=== PATIENT | male | born 1985 | race Caucasian/White ===

== ENCOUNTER 2024-08-21 12:24 | Outpatient (AMB) | payer OTHER, SELFPAY ==
--- NOTE | 2024-08-21 12:26 | A.OFFPC_ITS ---
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 examination of your retina (back of your eye) at least every year if you have diabetes. IMMUNIZATIONS Commonly needed vaccines include: Flu shot: get one every year COVID-19 vaccine: ask your provider what is best for you Tetanus-diphtheria and acellular pertussis (Tdap) vaccine: have as one of your tetanus-diphtheria vaccines if you did not receive it as an adolescent Tetanus-diphtheria: have a booster (or Tdap) every 10 years Varicella vaccine: receive 2 doses if you never had chickenpox or the varicella vaccine and were born in 1980 or after Hepatitis B vaccine: receive 2, 3, or 4 doses, depending on your exact circumstances, if you did not receive these as a child or adolescent, until age 59 Shingles (herpes zoster) vaccine: at or after age 50 Ask your provider if you should receive other immunizations, especially if you have certain medical conditions, such as diabetes or are at increased risk for some diseases such as pneumonia. INFECTIOUS DISEASE SCREENING Screening for hepatitis C: all adults ages 18 to 79 should get a one-time test for hepatitis C. Screening for human immunodeficiency virus (HIV): all people ages 15 to 65 should get a one-time test for HIV. Depending on your lifestyle and medical history, you may need to be screened for infections such as syphilis, chlamydia, and other infections. LUNG CANCER SCREENING You should have an annual screening for lung cancer with low-dose computed tomography (LDCT) if: You are age 50 to 80 years AND You have a 20 pack-year smoking history AND You currently smoke or have quit within the past 15 years OSTEOPOROSIS SCREENING If you are age 50 to 64 and have risk factors for osteoporosis, you should discuss screening with your provider. Risk factors can include long-term steroid use, low body weight, smoking, heavy alcohol use, having a fracture after age 50, or a family history of hip fracture or osteoporosis. Osteoporosis PHYSICAL EXAM All adults should visit their provider from time to time, even if they are healthy. The purpose of these visits is to: Screen for diseases Assess risk of future medical problems Encourage a healthy lifestyle Update vaccinations and other preventive care services Maintain a relationship with a provider in case of an illness Your height, weight, and body mass index (BMI) should be checked at every exam. During your exam, your provider may ask you about: Depression and anxiety Diet and exercise Alcohol and tobacco use Safety, such as use of seat belts and smoke detectors Your medicines and risk for interactions PROSTATE CANCER SCREENING If you're 55 through 69 years old, before having the test, talk to your provider about the pros and cons of having a PSA test. Ask about: Whether screening decreases your chance of dying from prostate cancer. Whether there is any harm from prostate cancer screening, such as side effects from testing or overtreatment of cancer when discovered. Whether you have a higher risk of prostate cancer than others. If you are age 55 or younger, screening is not generally recommended. You should talk with your provider about if you have a higher risk for prostate cancer. Risk factors include: Having a family history of prostate cancer (especially a brother or father) Being If you choose to be tested, the PSA blood test is repeated over time (yearly or less often), though the best frequency is not known. Prostate examinations are no longer routinely done on men with no symptoms. Prostate cancer SKIN EXAM Your provider may check your skin for signs of skin cancer, especially if you're at high risk. People at high risk include those who have had skin cancer before, have close relatives with skin cancer, or have a weakened immune system. TESTICULAR EXAM The [place] Preventive Services Task Force (USPSTF) now recommends against performing testicular self-exams. Doing testicular self-exams has been shown to have little to no benefit.
[2024-08-21 12:34] VITALS: BP 102/66; PULSE 60; RESP 12; O2SAT 96; BMI 23.1
== END 2024-08-21 13:10 | disposition home or self-care (01) ==
PROVIDERS: Visit Provider Nurse Practitioner Family
DX: Z00.00 Encounter for general adult medical examination without abnormal findings (principal); Z90.2 Acquired absence of lung [part of]; Z28.21 Immunization not carried out because of patient refusal; L30.9 Dermatitis, unspecified

== ENCOUNTER → 2024-08-21 12:24 | Outpatient (BNVA) | payer OTHER, SELFPAY | PROVIDERS: Visit Provider Nurse Practitioner Family | DX: Z00.00 Encounter for general adult medical examination without abnormal findings (principal); L30.9 Dermatitis, unspecified; Z90.2 Acquired absence of lung [part of]; Z28.21 Immunization not carried out because of patient refusal | CPT/HCPCS: 96127 ==

== ENCOUNTER 2024-08-21 13:19 | Outpatient (REF) | payer OTHER, SELFPAY ==
[2024-08-21 17:37] LABS: Hematocrit 40.9 % (42.0-52.0); Hemoglobin 14.3 g/dl (14.0-18.0); Mean Corpuscular Hemoglobin 32.4 pg (27.0-33.0); Mean Corpuscular Volume 92.5 fL (80.0-98.0); Platelet Count 213 X10*3/uL (160-400); Red Blood Count 4.42 X10*6/uL (4.60-5.80); Red Cell Distribution Width 12.7 % (11.0-16.0); White Blood Count 7.6 X10*3/uL (4.8-10.8)
[2024-08-21 17:46] LABS: Estimated Average Glucose 105 mg/dL; Hemoglobin A1C 123.5613 umol/L; Hemoglobin A1c % 5.3 % (<6.0); Total Hemoglobin (HGBA1C) 3647.2468 umol/L
[2024-08-21 17:59] LABS: Creatinine Urine 125.42 mg/dL; Microalbum/Creatinine Ratio Ur 5.5 ug/mg cr (<30)
[2024-08-21 18:00] LABS: Alanine Aminotransferase 25 U/L (0-40); Albumin Level 4.2 g/dL (3.5-5.0); Alkaline Phosphatase 68 U/L (39-117); Anion Gap 10 (12-20); Aspartate Amino Transferase 29 U/L (5-37); Bilirubin Total 0.4 mg/dL (0.0-1.0); Blood Urea Nitrogen 19 mg/dL (9-16); Calcium 9.9 mg/dL (8.4-10.2); Carbon Dioxide 26 mmol/L (22-29); Chloride 109 mmol/L (96-108); Cholesterol 173 mg/dL (<200); Estimated Glomerular Filt Rate > 60; Glucose Random 94 mg/dL (60-115); HDL Cholesterol 33 mg/dL (>40); LDL Cholesterol Calculated 96 mg/dL (<100); Potassium 3.9 mmol/L (3.3-5.1); Sodium 141 mmol/L (135-145); Triglycerides 223 mg/dL (<150)
[2024-08-21 18:18] LABS: TSH reflex Free T4 3.21 uIU/mL (0.32-4.0); Vitamin D 25-OH Total 41.8 ng/mL (>30)
[2024-08-21 18:21] LABS: Folate 8.6 ng/mL (> or = 4.0); Vitamin B12 836 pg/mL (200-900)
[2024-08-29 10:48] LABS: PSA, Ultra Sensitive 0.34 ng/mL
== END 2024-08-21 13:20 | disposition home or self-care (01) ==
LOC: HO.WFDLDS 13:19
PROVIDERS: Visit Provider Nurse Practitioner Family
DX: Z00.00 Encounter for general adult medical examination without abnormal findings (principal); Z12.5 Encounter for screening for malignant neoplasm of prostate
CPT/HCPCS: 36415; 80053; 80061; 82043; 82306; 82570; 82607; 82746; 83036; 84153; 84443; 85027

== ENCOUNTER 2025-08-27 12:09 | Outpatient (AMB) | payer OTHER, SELFPAY ==
[2025-08-27 12:13] VITALS: BP 116/72; PULSE 66; RESP 14; TEMP 36.4; O2SAT 96; BMI 21.2
--- NOTE | 2025-08-27 12:13 | A.OFFPC_ITS ---
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 depending on your exact circumstances, if you did not receive these as a child or adolescent, until age 59 Shingles (herpes zoster) vaccine: at or after age 50 Ask your provider if you should receive other immunizations, especially if you have certain medical conditions, such as diabetes or are at increased risk for some diseases such as pneumonia. INFECTIOUS DISEASE SCREENING Screening for hepatitis C: all adults ages 18 to 79 should get a one-time test for hepatitis C. Screening for human immunodeficiency virus (HIV): all people ages 15 to 65 should get a one-time test for HIV. Depending on your lifestyle and medical history, you may need to be screened for infections such as syphilis, chlamydia, and other infections. LUNG CANCER SCREENING You should have an annual screening for lung cancer with low-dose computed tomography (LDCT) if: You are age 50 to 80 years AND You have a 20 pack-year smoking history AND You currently smoke or have quit within the past 15 years OSTEOPOROSIS SCREENING If you are age 50 to 64 and have risk factors for osteoporosis, you should discuss screening with your provider. Risk factors can include long-term steroid use, low body weight, smoking, heavy alcohol use, having a fracture after age 50, or a family history of hip fracture or osteoporosis. Osteoporosis PHYSICAL EXAM All adults should visit their provider from time to time, even if they are healthy. The purpose of these visits is to: Screen for diseases Assess risk of future medical problems Encourage a healthy lifestyle Update vaccinations and other preventive care services Maintain a relationship with a provider in case of an illness Your height, weight, and body mass index (BMI) should be checked at every exam. During your exam, your provider may ask you about: Depression and anxiety Diet and exercise Alcohol and tobacco use Safety, such as use of seat belts and smoke detectors Your medicines and risk for interactions PROSTATE CANCER SCREENING If you're 55 through 69 years old, before having the test, talk to your provider about the pros and cons of having a PSA test. Ask about: Whether screening decreases your chance of dying from prostate cancer. Whether there is any harm from prostate cancer screening, such as side effects from testing or overtreatment of cancer when discovered. Whether you have a higher risk of prostate cancer than others. If you are age 55 or younger, screening is not generally recommended. You should talk with your provider about if you have a higher risk for prostate cancer. Risk factors include: Having a family history of prostate cancer (especially a brother or father) Being If you choose to be tested, the PSA blood test is repeated over time (yearly or less often), though the best frequency is not known. Prostate examinations are no longer routinely done on men with no symptoms. Prostate cancer SKIN EXAM Your provider may check your skin for signs of skin cancer, especially if you're at high risk. People at high risk include those who have had skin cancer before, have close relatives with skin cancer, or have a weakened immune system. TESTICULAR EXAM The [place] Preventive Services Task Force (USPSTF) now recommends against performing testicular self-exams. Doing testicular self-exams has been shown to have little to no benefit.
--- OUTSIDE RECORDS SUMMARY | 2025-08-27 16:01 | XMS_ITS | Clinical Summary ---
Author Organization [facility] Address [address] [place] [id number] Phone Care Team Providers Care Service Consultant Name Role Phone Pcp, Unknown Primary Care Provider Unavailabl e Allergies Active Allergy Reactions Criticality Noted Date Comments Penicillins 06/22/2020 Medications No known medications Social History Tobacco Use Types Packs/Day Years Used Date Smoking Tobacco: Never Alcohol Use Standard Drinks/Week Comments Not Currently 0 (1 standard drink = 0.6 oz pur e alcohol) Education Answer Date Recorded Are you interested in more education? Not on sera e 01/06/2023 Are you concerned about learning? Not on file 01/06/2023 No 01/06/2023 No 01/06/2023 Digital Access Answer Date Recorded No 02/06/2023 No 02/06/2023 No 02/06/2023 Reliable internet access at home? Not on file 02/06/2023 Device with a working camera? Not on file Sex and Gender Information Value Date Recorded Sex Assigned at Not on file Legal Sex Male 9:16 PM EDT Gender Identity Male 06/22/2020 8:25 AM EDT Sexual Orientation Not on file Last Filed Vital Signs Vital Sign Reading Time Taken Comments Blood Pressure 133/86 06/22/2020 8:24 AM EDT Pulse 64 06/22/2020 8:24 AM EDT Temperature 36.1 C (97 F) 06/22/2020 8:24 AM EDT Respiratory Rate 18 06/22/2020 10:25 AM EDT Oxygen Saturation 100% 06/22/2020 8:24 AM EDT Inhaled Oxygen Concentration - - Weight 65.8 kg (145 lb) 06/22/2020 8:24 AM EDT Height 177.8 cm (5' 10 ) 06/22/2020 8:24 AM EDT Body Mass Index 20.81 06/22/2020 8:24 AM EDT Plan of Treatment Not on file Medical Devices Not on file Insurance [address] [place], [place] [id number] [address] [place] [id number] [address] [place] [address] [place] [place] [address] [place] [address] [place] [id number] [place] [place] [address] [place] [address] [address] [place] [address] [address] [place] [id number] POS Care Teams Service Consultant Relationship Specialty Start Date End Date Pcp, Unknown PCP - General 06/22/20 Additional Source Comments The information contained in this document represents components of the legal health record. It is not the complete legal health record.[facility]
== END 2025-08-27 13:00 | disposition home or self-care (01) ==
LOC: HO.HMCFM 12:10
PROVIDERS: PCP Nurse Practitioner Family; Visit Provider Nurse Practitioner Family
DX: Z00.00 Encounter for general adult medical examination without abnormal findings (principal); D64.9 Anemia, unspecified; E78.5 Hyperlipidemia, unspecified; Z28.21 Immunization not carried out because of patient refusal; Z90.2 Acquired absence of lung [part of]; L30.9 Dermatitis, unspecified; J06.9 Acute upper respiratory infection, unspecified; R63.4 Abnormal weight loss

== ENCOUNTER 2025-08-27 12:09 | Outpatient (REF) | payer OTHER, SELFPAY ==
[2025-08-27 15:35] LABS: Hematocrit 42.5 % (42.0-52.0); Hemoglobin 14.1 g/dl (14.0-18.0); Mean Corpuscular HGB Conc 33.2 g/dl (31.0-36.0); Mean Corpuscular Hemoglobin 31.5 pg (27.0-33.0); Mean Corpuscular Volume 95.1 fL (80.0-98.0); NRBC Abs Auto 0.000 X10*3/uL (0.0-0.012); NRBC Pct Auto 0.0 /100WBC (0.0-0.2); Platelet Count 228 X10*3/uL (160-400); Red Blood Count 4.47 X10*6/uL (4.60-5.80); White Blood Count 7.5 X10*3/uL (4.8-10.8)
[2025-08-27 16:01] LABS: Alanine Aminotransferase 30 U/L (0-40); Albumin Level 4.5 g/dL (3.5-5.0); Alkaline Phosphatase 83 U/L (39-117); Anion Gap 10 (12-20); Aspartate Amino Transferase 31 U/L (5-37); Blood Urea Nitrogen 18 mg/dL (9-16); Calcium 9.5 mg/dL (8.4-10.2); Carbon Dioxide 28 mmol/L (22-29); Chloride 107 mmol/L (96-108); Cholesterol 165 mg/dL (<200); Estimated Glomerular Filt Rate > 60; HDL Cholesterol 33 mg/dL (>40); Iron 81 mcg/dL (45-160); Percent Iron Saturation 31 % (15-50); Potassium 4.0 mmol/L (3.3-5.1); Sodium 141 mmol/L (135-145); Total Iron Binding Capacity 261 mcg/dL (228-428); Total Protein 7.1 g/dL (6.5-8.0); Triglycerides 98 mg/dL (<150); Unsaturated Iron Binding 180 ug/dL
[2025-08-27 16:22] LABS: Ferritin 146 ng/mL (20-250)
[2025-08-27 16:30] LABS: Folate 12.7 ng/mL (> or = 4.0); Vitamin B12 927 pg/mL (200-900)
[2025-08-27 16:46] LABS: Microalbum/Creatinine Ratio Ur 5.5 ug/mg cr (<30)
== END 2025-08-27 12:10 | disposition home or self-care (01) ==
LOC: HO.WFDLDS 12:09
PROVIDERS: PCP Nurse Practitioner Family; Visit Provider Nurse Practitioner Family
DX: Z00.00 Encounter for general adult medical examination without abnormal findings (principal); Z12.5 Encounter for screening for malignant neoplasm of prostate; E78.5 Hyperlipidemia, unspecified; D64.9 Anemia, unspecified; Z28.21 Immunization not carried out because of patient refusal; L30.9 Dermatitis, unspecified; J06.9 Acute upper respiratory infection, unspecified; R63.4 Abnormal weight loss; Z90.2 Acquired absence of lung [part of]
CPT/HCPCS: 36415; 80053; 80061; 82043; 82306; 82570; 82607; 82728; 82746; 83036; 83540; 84153; 84443; 85027; 96127